=== PATIENT | female | born 1950 | race Caucasian/White ===

== ENCOUNTER → 2022-12-17 | Outpatient (CLI) | payer MEDICARE, OTHER | END | disposition home or self-care (01) | LOC: LAB SHORT 17:12 → LAB 17:12 | DX: R30.0 Dysuria (principal) | CPT/HCPCS: 87086 ==

== ENCOUNTER → 2022-12-28 | Outpatient (CLI) | payer MEDICARE, OTHER ==
[2023-01-05 05:12] LABS: CA OXALATE DIHYDRATE 30 % (.); CALCIUM OXALATE MONOHYDRATE 70 % (.); COLOR Brown (.); SIZE 3x3 mm (.); SOURCE Kidney (.); WEIGHT 29 mg (.)
== END ==
LOC: LAB 13:02 → LAB SHORT 13:02
PROVIDERS: Physician Assistant
DX: Z87.442 Personal history of urinary calculi (principal)
CPT/HCPCS: 82365

== ENCOUNTER → 2024-06-17 | Outpatient (CLI) | payer OTHER ==
[~2024-06-17] MED LIST: ESZO2; SENNA LAXATIVE8.6 MG PO
[2024-06-22 12:57] LABS: CALCIUM, URINE - PER 24H 159 mg/d (100-250); CALCIUM, URINE - PER VOLUME 6.1 mg/dL; CHLORIDE, URINE - PER 24H 68 mmol/d (140-250); CHLORIDE, URINE - PER VOLUME 26 mmol/L; CITRIC ACID, URINE - PER 24H 499 mg/d (320-1240); CITRIC ACID,URINE - PER VOLUME 192 mg/L; CREATININE, URINE - PER 24H 1118 mg/d (500-1400); CREATININE, URINE - PER VOLUME 43 mg/dL; HOURS COLLECTED 24 hr; MAGNESIUM, URINE - PER VOLUME 4.8 mg/dL; MAGNESIUM, URINE PER 24H 125 mg/d (12-199); OXALATE, URINE - PER 24H 65 mg/d (13-40); OXALATE, URINE - PER VOLUME 25 mg/L; PH, URINE 6.08 (5.00-7.50); PHOSPHORUS, URINE - PER 24H 650 mg/d (400-1300); PHOSPHORUS, URINE - PER VOLUME 25 mg/dL; POTASSIUM, URINE - PER 24H 44 mmol/d (25-125); POTASSIUM, URINE - PER VOLUME 17 mmol/L; SODIUM, URINE - PER 24H 65 mmol/d (51-286); SODIUM, URINE - PER VOLUME 25 mmol/L; SULFATE, URINE - PER 24H < 5 mmol/d (6-30); SULFATE, URINE - PER VOLUME <5 mmol/L; TOTAL VOLUME 2600 mL; URIC ACID, URINE - PER 24H 299 mg/d (250-750); URIC ACID, URINE - PER VOLUME 11.5 mg/dL; URINE SUPERSATURATION INTERP Abnormal; URINE SUPERSATURATION, CAHPO4 0.79; URINE SUPERSATURATION, CAOX 7.25; URINE SUPERSATURATION, UA CALC 0.16
== END | disposition home or self-care (01) ==
LOC: LAB SHORT 09:00 → LAB 09:00 → LAB FUT 04-06 17:10
PROVIDERS: Urology
DX: N20.0 Calculus of kidney (principal)
CPT/HCPCS: 81003; 81050; 82131; 82140; 82340; 82436; 82507; 82570; 83735; 83935; 83945; 84105; 84133; 84300; 84392; 84560